=== PATIENT | male | born 1995 | race Caucasian/White ===

== ENCOUNTER 2016-08-10 00:36 | Emergency (ER) | payer SELFPAY ==
[~2016-08-10] VITALS: Ht 170.2 cm; Wt 71.8 kg
[2016-08-10] MEDS ORDERED: PERTUSS(ACELL),DIPH,TET VAC/PF 0.5 ML VIAL IM ONE (01:00)
[2016-08-10] MEDS ORDERED: AMOX TR/POT CLAV 875 MG/125 MG TABLET PO ONE (01:30)
[2016-08-10] MEDS ORDERED: TraMADol HCL 50 MG TABLET PO ONE (02:30)
[2016-08-10] MEDS ORDERED: IBUPROFEN 800 MG TABLET PO ONE (02:30)
[2016-08-10 02:50] VITALS: BP 132/85
== END 2016-08-10 03:09 | disposition home or self-care (01) ==
LOC: EMS 00:39
DX: S62.303A Unspecified fracture of third metacarpal bone, left hand, initial encounter for closed fracture (principal); F17.210 Nicotine dependence, cigarettes, uncomplicated; F12.10 Cannabis abuse, uncomplicated; W22.8XXA Striking against or struck by other objects, initial encounter; Y93.89 Activity, other specified; Y92.9 Unspecified place or not applicable; Y99.9 Unspecified external cause status
CPT/HCPCS: 90471; 90715; 99284

== ENCOUNTER 2016-08-14 15:26 | Emergency (ER) | payer SELFPAY ==
[~2016-08-14] VITALS: Ht 170.2 cm; Wt 71.5 kg
[2016-08-14 15:48] VITALS: BP 123/72
== END 2016-08-14 18:28 | disposition left against medical advice (07) ==
LOC: EMS 15:31
DX: R51 Headache (principal); F17.210 Nicotine dependence, cigarettes, uncomplicated; Z53.21 Procedure and treatment not carried out due to patient leaving prior to being seen by health care provider